=== PATIENT | female | born 1945 | race Caucasian/White ===

== ENCOUNTER 2023-05-22 19:01 | Day surgery (SDC) | payer MEDICARE, OTHER ==
[2023-05-22] VITALS (8 sets, daily range): BP systolic 111–121; BP diastolic 58–67
[2023-05-22 19:21] LABS: BASOPHILS # (AUTO) 0.1 10^3/uL (0.0-0.1); BASOPHILS % (AUTO) 0 % (0-10); EOSINOPHILS # (AUTO) 0.3 10^3/uL (0.0-0.3); EOSINOPHILS % (AUTO) 2 % (0-10); HEMATOCRIT 30 % (35-52); HEMOGLOBIN 9.8 g/dL (11.5-16.0); LYMPHOCYTES # (AUTO) 1.8 10^3/uL (1.0-4.0); LYMPHOCYTES % (AUTO) 13 % (12-44); MEAN CORPUSCULAR HEMOGLOBIN 29 pg (25-34); MEAN CORPUSCULAR HGB CONC 33 g/dL (32-36); MEAN CORPUSCULAR VOLUME 87 fL (80-99); MEAN PLATELET VOLUME 9.3 fL (9.0-12.2); MONOCYTES # (AUTO) 1.4 10^3/uL (0.0-1.0); MONOCYTES % (AUTO) 10 % (0-12); NEUTROPHILS # (AUTO) 9.8 10^3/uL (1.8-7.8); NEUTROPHILS % (AUTO) 73 % (42-75); PLATELET COUNT 425 10^3/uL (130-400); WHITE BLOOD COUNT 13.4 10^3/uL (4.3-11.0)
[2023-05-22] MEDS ORDERED: NS IV 1000 ML 1,000 ML IV STA (19:26)
[2023-05-22] MEDS ORDERED: GLUCAGON EMERGENCY 1 MG/KIT ONE (19:27)
--- NOTE | 2023-05-22 19:29 | ED EENT ---
History of Present Illness General Chief Complaint: Oral/Throat Problems Stated Complaint: FOOD BOLUS Source: patient Exam Limitations: no limitations History of Present Illness Date Seen by Provider: May 22, 2023 Time Seen by Provider: 19:27 Initial Comments Patient is a 78-year-old female who presents to the ED for food bolus. She states she was eating a chicken wing 30 minutes before arrival. Daughter states patient was starting to choke. She started having difficulty breathing. Immediately started performing Heimlich. EMS was contacted. Patient feels like something stuck in the back of her throat. She had a total shoulder replacement 2 weeks ago. Patient having difficulty tolerating secretions. Attempted to drink water immediately vomit. Drink soda here vomited immediately. Notable wheezing which she states is chronic. She does not wear oxygen daily but wears oxygen at night. Patient in mild to moderate distress. Allergies and Home Medications Allergies Coded Allergies: No Known Drug Allergies (Unverified , 05/22/23) Patient Home Medication List Home Medication List Reviewed: Yes Review of Systems Review of Systems Constitutional: No chills, No diaphoresis, No fever, No malaise, No weakness Eyes: Denies Blindness, Denies Drainage, Denies Decreased Acuity Ears: Denies Dizziness, Denies Pain, Denies Tinnitus, Denies Bloody Discharge, Denies Other Nose: denies clots, denies congestion Mouth: denies clots, denies loose teeth, denies pain, denies swelling Throat: pain; denies swelling Respiratory: No cough Cardiovascular: No chest pain, No edema Gastrointestinal: No abdominal pain, No diarrhea, No nausea, No vomiting Musculoskeletal: No back pain, No gout Skin: No change in color, No change in hair/nails Neurological: Denies Anxiety, Denies Depressed Physical Exam Vital Signs Vital Signs - First Documented 05/22/23 19:01 Pulse 118 Resp 18 B/P (MAP) 104/93 (97) Pulse Ox 97 O2 Delivery Room Air Height, Weight, BMI Height: '" Weight: lbs. oz. 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 II-XII nml as tested, no motor/sensory deficits, alert, normal mood/affect, oriented x 3 Skin: normal color, warm/dry Progress/Results/Core Measures Results/Orders Lab Results Laboratory Tests Test 05/22/23 19:14 Range/Units White Blood Count 13.4 H 4.3-11.0 10^3/uL Red Blood Count 3.43 L 3.80-5.11 10^6/uL Hemoglobin 9.8 L 11.5-16.0 g/dL Hematocrit 30 L 35-52 % Mean Corpuscular Volume 87 80-99 fL Mean Corpuscular Hemoglobin 29 25-34 pg Mean Corpuscular Hemoglobin Concent 33 32-36 g/dL Red Cell Distribution Width 14.7 H 10.0-14.5 % Platelet Count 425 H 130-400 10^3/uL Mean Platelet Volume 9.3 9.0-12.2 fL Immature Granulocyte % (Auto) 1 % Neutrophils (%) (Auto) 73 42-75 % Lymphocytes (%) (Auto) 13 12-44 % Monocytes (%) (Auto) 10 0-12 % Eosinophils (%) (Auto) 2 0-10 % Basophils (%) (Auto) 0 0-10 % Neutrophils # (Auto) 9.8 H 1.8-7.8 10^3/uL Lymphocytes # (Auto) 1.8 1.0-4.0 10^3/uL Monocytes # (Auto) 1.4 H 0.0-1.0 10^3/uL Eosinophils # (Auto) 0.3 0.0-0.3 10^3/uL Basophils # (Auto) 0.1 0.0-0.1 10^3/uL Immature Granulocyte # (Auto) 0.2 H 0.0-0.1 10^3/uL Sodium Level 138 135-145 MMOL/L Potassium Level 4.0 3.6-5.0 MMOL/L Chloride Level 105 98-107 MMOL/L Carbon Dioxide Level 22 21-32 MMOL/L Anion Gap 11 5-14 MMOL/L Blood Urea Nitrogen 16 7-18 MG/DL Creatinine 0.88 0.60-1.30 MG/DL Estimat Glomerular Filtration Rate 66 BUN/Creatinine Ratio 18 Glucose Level 113 H 70-105 MG/DL Calcium Level 9.7 8.5-10.1 MG/DL Corrected Calcium 9.9 8.5-10.1 MG/DL Total Bilirubin 0.4 0.1-1.0 MG/DL Aspartate Amino Transf (AST/SGOT) 22 5-34 U/L Alanine Aminotransferase (ALT/SGPT) 22 0-55 U/L Alkaline Phosphatase 81 40-136 U/L Total Protein 7.0 6.4-8.2 GM/DL Albumin 3.8 3.2-4.5 GM/DL My Orders Orders - LUPILLO PALOMINO PA Chest 1 View, Ap/Pa Only (05/22/23 19:13) Cbc With Automated Diff (05/22/23 19:13) Comprehensive Metabolic Panel (05/22/23 19:13) Glucagon Emergency Kit (Glucagon Emergen (05/22/23 19:30) Ns Iv 1000 Ml (Sodium Chloride 0.9%) (05/22/23 19:26) Ondansetron Injection (Zofran Injectio (05/22/23 19:45) Medications Given in ED Current Medications Medications Dose Ordered Sig/Sandip Route Start Time Stop Time Status Last Admin Dose Admin Glucagon 1 mg ONCE ONCE IM 05/22/23 19:30 05/22/23 19:31 DC 05/22/23 19:30 1 MG Ondansetron HCl 4 mg ONCE ONCE IVP 05/22/23 19:45 05/22/23 19:46 DC 05/22/23 19:53 33 MG Vital Signs/I&O 05/22/23 05/22/23 05/22/23 05/22/23 19:01 20:59 21:49 21:49 Temp 36.3 Pulse 118 92 Resp 18 18 20 B/P (MAP) 104/93 (97) 103/67 121/63 (82) Pulse Ox 97 98 98 O2 Delivery Room Air Room Air OxyMask OxyMask O2 Flow Rate 6.00 6.00 05/22/23 05/22/23 05/22/23 05/22/23 21:58 22:00 22:00 22:07 Resp 20 20 B/P (MAP) 114/65 (81) 118/62 (80) Pulse Ox 99 99 O2 Delivery OxyMask OxyMask OxyMask OxyMask O2 Flow Rate 5.00 5.00 5.00 4.00 05/22/23 05/22/23 22:10 22:10 Resp 18 B/P (MAP) 115/67 (83) Pulse Ox 95 O2 Delivery OxyMask OxyMask O2 Flow Rate 3.00 3.00 Departure Communication (PCP) Patient presents to ED for evaluation after a food bolus. Patient was eating a chicken wing. 30 minutes before arrival started choking. According to daughter patient stopped breathing. She attempted the Heimlich 3 times and breathing improved. Patient family called EMS. On arrival mild to moderate distress. Difficulty tolerating secretions. Attempted to drink fluids but patient immediately vomited. Used IV glucagon 1mg patient did not note any improvement. Feels like something stuck in her throat. CBC, CMP, chest x-ray was ordered. She is currently on Plavix for the past week. History of TIA, hypertension. Patient continued to feel a sensation in the back part of her throat. Chest x- ray was negative for pneumothorax or obvious radiopaque foreign body. Patient was discussed with Dr. Workman general surgeon who end up coming to the ED and will take patient for upper endoscopy and removal of foreign body. Patient was started on a liter of fluid. Patient did receive Zofran 4mg. Vital signs stable. Impression Primary Impression: Food impaction of esophagus Disposition: 30 STILL A PATIENT Condition: Stable Departure-Patient Inst. Decision time for Depature: 20:01 Referrals: BOLIVAR WORKMAN,LOCAL PHYSICIAN (PCP) Primary Care Physician Patient Instructions: Foreign Body, Swallowed, Adult LUPILLO PALOMINO May 22, 2023 19:29
[2023-05-22] MEDS ORDERED: GLUCAGON EMERGENCY 1 MG/KIT IM ONE (19:30)
--- NOTE | 2023-05-22 19:35 | Diagnostic Imaging Report ---
INDICATION: Wheezing, possible foreign body. FINDINGS: No radiopaque foreign body. The lung volumes symmetric. No lobar volume loss or abnormal expansion. No pneumothorax or pneumomediastinum. No effusion. IMPRESSION: Unremarkable frontal chest Dictated by: Dictated on workstation # [id number]
[2023-05-22] MEDS ORDERED: ONDANSETRON 4 MG/2 ML (SDV) Z0FRAN IVP ONE (19:45)
[2023-05-22 19:59] LABS: ALBUMIN 3.8 GM/DL (3.2-4.5); BILIRUBIN,TOTAL 0.4 MG/DL (0.1-1.0); CALCIUM 9.7 MG/DL (8.5-10.1); CREATININE SERUM 0.88 MG/DL (0.60-1.30)
--- NOTE | 2023-05-22 20:34 | Consultation - Surgery ---
History of Present Illness History of Present Illness Patient Consulted On(jonny/time) 05/22/23 20:28 Date Seen by Provider: May 22, 2023 Time Seen by Provider: 20:28 History of Present Illness Consult requested by Sandeep Castro for food bolus. Seen and evaluated in ED. 78 year old female eating chicken wings. Started choking. Had Heimlich done 2 or 3 times. Still having difficulty with secretions. Very uncomfortable. Never got anything up except very small piece of chicken. Wretching still at times to try and get it to go down. Chest x ray unremarkable. Allergies and Home Medications Allergies Coded Allergies: No Known Drug Allergies (Unverified , 05/22/23) Patient Home Medication List Home Medication List Reviewed: Yes Past Snfzdaz-Chmyib-Sudwqh Hx Patient Social History Alcohol Use?: No Surgeries History of Surgeries: Yes (Right shoulder complete replacement.) Respiratory History of Respiratory Disorde: No Cardiovascular History of Cardiac Disorders: Yes Cardiac Disorders: Hypertension Neurological History of Neurological Disord: Yes Neurological Disorders: TIA Genitourinary History of Genitourinary Disor: No Gastrointestinal History of Gastrointestinal Di: No Musculoskeletal History of Musculoskeletal Dis: No Endocrine History of Endocrine Disorders: No HEENT History of HEENT Disorders: No Cancer History of Cancer: No Psychosocial History of Psychiatric Problem: No Integumentary History of Skin or Integumenta: No Reviewed Nursing Assessment Reviewed/Agree w Nursing PMH: Yes Family Medical History Significant Family History: No Pertinent Family Hx Review of Systems-General Constitutional: No chills, No diaphoresis EENTM: No blurred vision, No double vision Respiratory: No cough, No dyspnea on exertion Cardiovascular: No chest pain, No palpitations Gastrointestinal: No abdominal pain; nausea, vomiting Genitourinary: No decreased output, No discharge Musculoskeletal: No back pain; joint pain (recent surgery) Skin: No change in color Psychiatric/Neurological: Denies Anxiety, Denies Depressed, Denies Emotional Problems All Other Systems Reviewed Negative Unless Noted: Yes (Negative excepted noted.) Physical Exam-General Problems Physical Exam Vital Signs Vital Signs - First Documented 05/22/23 19:01 Pulse 118 Resp 18 B/P (MAP) 104/93 (97) Pulse Ox 97 O2 Delivery Room Air Capillary Refill : Less Than 3 Seconds General Appearance: WD/WN, mild distress HEENT: PERRL/EOMI, normal ENT inspection Neck: supple, other (uncomfortable with palpation) Respiratory: chest non-tender, no respiratory distress, no accessory muscle use Cardiovascular: no JVD, tachycardia Gastrointestinal: non tender, soft Rectal: deferred Back: no CVA tenderness, no vertebral tenderness Extremities: other (right shoulder in sling(recent surgery)) Neurologic/Psychiatric: alert Skin: normal color, warm/dry Lymphatic: no adenopathy Data Review Labs Laboratory Tests 05/22/23 19:14: White Blood Count 13.4H, Red Blood Count 3.43L, Hemoglobin 9.8L, Hematocrit 30L, Mean Corpuscular Volume 87, Mean Corpuscular Hemoglobin 29, Mean Corpuscular Hemoglobin Concent 33, Red Cell Distribution Width 14.7H, Platelet Count 425H, Mean Platelet Volume 9.3, Immature Granulocyte % (Auto) 1, Neutrophils (%) (Auto) 73, Lymphocytes (%) (Auto) 13, Monocytes (%) (Auto) 10, Eosinophils (%) (Auto) 2, Basophils (%) (Auto) 0, Neutrophils # (Auto) 9.8H, Lymphocytes # (Auto) 1.8, Monocytes # (Auto) 1.4H, Eosinophils # (Auto) 0.3, Basophils # (Auto) 0.1, Immature Granulocyte # (Auto) 0.2H, Sodium Level 138, Potassium Level 4.0, Chloride Level 105, Carbon Dioxide Level 22, Anion Gap 11, Blood Urea Nitrogen 16, Creatinine 0.88, Estimat Glomerular Filtration Rate 66, BUN/Cr eatinine Ratio 18, Glucose Level 113H, Calcium Level 9.7, Corrected Calcium 9.9, Total Bilirubin 0.4, Aspartate Amino Transf (AST/SGOT) 22, Alanine Aminotransferase (ALT/SGPT) 22, Alkaline Phosphatase 81, Total Protein 7.0, Albumin 3.8 Assessment/Plan Assessment/Plan Assessment/Plan food bolus antiplatelet use n/v patient with food bolus discussed risks and benefits of egd and all other indicated procedures NPO TO OR for EGD Understands higher risk with antiplatelet use. BOLIVAR MAURICIO DO May 22, 2023 20:34
[2023-05-22] MEDS ORDERED: fentaNYL INJ 100 MCG/2 ML AMP ONE (20:38)
[2023-05-22] MEDS ORDERED: LIDOCAINE PF 2% 5 ML (XYLOCAINE) VIAL ONE (20:38)
[2023-05-22] MEDS ORDERED: proPOfol 200 MG/20 ML (DIPRIVAN) VIAL IV ONE (20:38)
[2023-05-22] MEDS ORDERED: SUCCINYLCHOLINE INJ 20 MG/1 ML 10 ML VIAL ONE (20:38)
[2023-05-22] MEDS ORDERED: SEVOFLURANE (ULTANE) 15 ML INHAL SOLN ONE (21:35)
--- NOTE | 2023-05-22 21:42 | Discharge Inst-Simple/Standard ---
Discharge Inst-Standard Patient Instructions/Follow Up Plan of Care/Instructions/FU: Dr. Workman on as needed basis. Activity as Tolerated: Yes Discharge Diet: Liquid Diet (for 1-2 days then advance as tolerates. make sure to chew food well.) BOLIVAR WORKMAN DO May 22, 2023 21:42
--- NOTE | 2023-05-22 21:43 | Progress Note-Post Operative ---
Post-Operative Progess Note Surgeon (s)/Lineman A Class (s) Surgeon BOLIVAR MAURICIO DO Lineman A Class: na Pre-Operative Diagnosis esophageal food bolus Post-Operative Diagnosis same Procedure & Operative Findings Date of Procedure 05/22/23 Procedure Performed/Findings egd and removal of esophageal food bolus Anesthesia Type general Estimated Blood Loss Estimated blood loss (mL): none Specimens/Packing Specimens Removed na BOLIVAR MAURICIO DO May 22, 2023 21:43
--- NOTE | 2023-05-22 22:03 | Anesthesia-General Post-Op ---
General Patient Condition Mental Status/LOC: Same as Preop Cardiovascular: Satisfactory Nausea/Vomiting: Absent Respiratory: Satisfactory Pain: Controlled Complications: Absent Post Op Complications Complications None Follow Up Care/Instructions Patient Instructions None needed. Anesthesia/Patient Condition Patient Condition Patient is doing well, no complaints, stable vital signs, no apparent adverse anesthesia problems. No complications reported per nursing. RAE EDDY CRNA May 22, 2023 22:03
[2023-05-22] MEDS ORDERED: morphine INJ 10 MG/ML 1ML (SYR OR VIAL) IVP ONE (22:15)
[2023-05-22] MEDS ORDERED: ONDANSETRON 4 MG/2 ML (SDV) Z0FRAN IVP PRN (22:15)
--- NOTE | 2023-05-23 03:14 | OPERATIVE REPORT ---
DATE OF SERVICE: 05/22/2023 PREOPERATIVE DIAGNOSIS: Esophageal food bolus. POSTOPERATIVE DIAGNOSIS: Esophageal food bolus. PROCEDURE: EGD and removal of esophageal food bolus. SURGEON: Bolivar Workman DO ANESTHESIA: General. ESTIMATED BLOOD LOSS: None. COMPLICATIONS: None. INDICATIONS: The patient is an 78-year-old female with a food bolus eating chicken. She did have a Heimlich maneuver performed 2 to 3 times. She is still having trouble with secretions. She and family understands risks and benefits of procedure and wished to proceed. Consent was signed and in chart. DESCRIPTION OF PROCEDURE: The patient was taken to the operating suite. The patient was intubated for airway protection. Timeout was performed. Scope was inserted into the mouth and into the esophagus. In the proximal esophagus, large food bolus was present. Biopsy forceps were used to try to remove it, but I could not get a good grab. A Reveal distal attachment cap was then attached to the scope, reinserted and when the food bolus food bolus was encountered, this was then suctioned up into the device and then slowly retraction was made [ ] it was able to be removed in its entirety. The cap was then removed and the scope was then reinserted to the mouth, down the esophagus, stomach and into the duodenum without difficulty. Some duodenitis appearance present. Scope was then slowly retracted back into stomach where it was continued to be insufflated, food particulate and the majority of the stomach present. Scope was retroflexed noting no other pathology. Scope was returned to its normal position, slowly withdrawn until distal esophagus and slowly retracted until completely removed, noting no other pathology. The patient tolerated the procedure well without any complications. She was taken to recovery room in stable condition. She will be discharged home. Job ID: [id number] DocumentID: [id number] Dictated Date: 05/22/2023 21:46:29 Referral Nurse Date: 05/23/2023 03:11:00 Dictated By: BOLIVAR WORKMAN DO
== END 2023-05-22 22:55 | disposition home or self-care (01) ==
LOC: ER 19:05 → SDC 20:09
PROVIDERS: ATTEND Surgery
DX: T18.128A Food in esophagus causing other injury, initial encounter (principal); K29.80 Duodenitis without bleeding; R11.2 Nausea with vomiting, unspecified; Z79.02 Long term (current) use of antithrombotics/antiplatelets; J44.9 Chronic obstructive pulmonary disease, unspecified
CPT/HCPCS: 36415; 71045; 80053; 85025; 96361; 96372; 96374